=== PATIENT | female | born 1975 | race Hispanic/Latino ===

== ENCOUNTER 2016-09-01 22:38 | Emergency (ER) | payer MEDICAID ==
[2016-09-02] MEDS ORDERED: ZOFRAN ODT PO ONE (00:08)
[2016-09-02] MEDS ORDERED: DILAUDID IM ONE (00:08)
--- NOTE | 2016-09-02 00:19 | Emergency Department Report ---
ED Upper Extremity Inj HPI - General Chief Complaint: Shoulder Injury Stated Complaint: FALL Source: patient, family Mode of arrival: Ambulatory Limitations: No Limitations - History of Present Illness Initial Comments: 41-year-old right-hand dominant female with past medical history presents to the hospital with complaints of left shoulder pain status post fall. Patient was standing on a footstool lost balance and fell about 2 feet onto carpeted floor today between 2 and 3 PM. He denies any head injury or LOC. Patient complains of 7/10 left shoulder pain worse with palpation and movement in any direction. Pain is aching and throbbing. Constant. No alleviating factors reported. She has a history of a previous shoulder dislocation 1 in the past. - Related Data Previous Rx's Medication Instructions Recorded Last Taken Type HYDROcodone/APAP 5-325 [[place] 1 each PO Q6HR PRN #20 tablet 09/02/16 Unknown Rx 5/325] Allergies Allergy/AdvReac Type Severity Reaction Status Date / Time aspirin Allergy Hives Verified 09/01/16 22:50 ED Review of Systems ROS: Stated complaint: FALL Other details as noted in HPI Comment: All other systems reviewed and negative Other: Constitutional: No fevers chills Eyes: No eye pain visual changes ENT: No ear pain or throat pain Neck: Denies pain Respiratory: Denies cough wheezing shortness of breath Cardiovascular: Denies chest pain, palpitations, syncope GI: Denies abdominal pain, nausea, vomiting, diarrhea : Denies dysuria Musculoskeletal: Per HPI Skin: Denies rash, lesions, erythema Neurologic: Denies headache, numbness, weakness Psychiatric: Denies suicidal ideation, hallucinations ED Past Medical Hx - Past Medical History Previous Medical History?: No - Surgical History Past Surgical History?: No - Social History Smoking Status: Current Every Day Smoker Substance Use Type: Alcohol - Medications Home Medications: Home Medications Medication Instructions Recorded Confirmed Last Taken Type HYDROcodone/APAP 5-325 [[place] 1 each PO Q6HR PRN #20 tablet 09/02/16 Unknown Rx 5/325] ED Physical Exam - General Limitations: No Limitations - Other Other exam information: General: No limitations, patient is alert, mild distress secondary to pain Head exam: Atraumatic, normocephalic Eyes exam: Normal appearance ENT: Moist mucous membrane, normal oropharynx Neck exam: Normal inspection, full range of motion, no meningismus nontender Respiratory exam: Clear to auscultation bilateral, no wheezes, rales, crackles Cardiovascular: Normal rate and rhythm, normal heart sounds Abdomen: Soft, nondistended, and nontender, with normal bowel sounds, no rebound, or guarding Extremity: Tenderness along the left trapezius muscle extending to the shoulder. + diffuse left shoulder tenderness. Limited external rotation and abduction secondary to pain are 2+ radial pulse. No noticeable deformity Back: Normal Inspection, full range of motion, no tenderness Neurologic: Alert, oriented x3, cranial nerves intact, no motor or sensory deficit Psychiatric: normal affect, normal mood Skin: Warm, dry, intact ED Course Vital Signs 09/01/16 09/01/16 09/02/16 22:50 23:59 00:19 Temperature 97.9 F Pulse Rate 109 H 96 H Respiratory 20 18 18 Rate Blood Pressure 148/85 133/79 [Right] O2 Sat by Pulse 100 96 Oximetry - Reevaluation(s) Reevaluation #1: 09/02/16 01:02 Patient has pain with movement at the IM Dilaudid. ED Medical Decision Making - Radiology Data Radiology results: image reviewed (left shoulder x-ray: No acute findings) - Medical Decision Making Plan to d/c pt home meds for pain. Orthopedic follow-up will be encouraged to rule out ligamentous injury. Patient received IM Dilaudid and by mouth Zofran with improvement in pain prior to discharge. Sling provided for comfort and support - Differential Diagnosis fracture, contusion, sprain Critical Care Time: No Critical care attestation.: If time is entered above; I have spent that time in minutes in the direct care of this critically ill patient, excluding procedure time. ED Disposition Clinical Impression: Left shoulder strain Disposition: DISCHARGED TO HOME OR SELFCARE Is pt being admited?: No Does the pt Need Aspirin: No Condition: Stable Instructions: Shoulder Sprain (ED) Additional Instructions: Take the medication as prescribed. Although your x-ray does not show any broken bones you likely have injury to the ligaments or muscles in your left shoulder. Continue to wear a sling and follow up with the orthopedic doctor provided with a doctor of your choice. [place]/hydrocodone is a narcotic and may cause drowsiness and constipation. Do not drive while taking this medication and use lactose his stool softeners as needed. Prescriptions: HYDROcodone/APAP 5-325 [[place] 5/325] 1 each PO Q6HR PRN #20 tablet PRN Reason: Pain Referrals: AURY PARRA MD [Staff Physician] - 3-5 Days Time of Disposition: 01:03
[2016-09-02 00:20] VITALS: BP 133/79
--- NOTE | 2016-09-02 07:34 | XRay Report ---
LEFT SHOULDER, 3 views: History: Left shoulder pain after fall. Routine views demonstrate normal bony and soft tissue structures with normal joint alignment of the shoulder. IMPRESSION: Unremarkable left shoulder exam.
== END 2016-09-02 01:13 | disposition home or self-care (01) ==
LOC: ED 22:38
DX: S46.912A Strain of unspecified muscle, fascia and tendon at shoulder and upper arm level, left arm, initial encounter (principal); W01.0XXA Fall on same level from slipping, tripping and stumbling without subsequent striking against object, initial encounter; Y93.89 Activity, other specified; Y92.89 Other specified places as the place of occurrence of the external cause; Y99.8 Other external cause status; F17.200 Nicotine dependence, unspecified, uncomplicated; Z76.82 Awaiting organ transplant status
CPT/HCPCS: 29105; 73030; 96372; 99284; J1170; Q0162